=== PATIENT | male | born 1990 | race Caucasian/White ===

== ENCOUNTER 2018-08-06 10:21 | Inpatient (IN) | payer MEDICAID ==
[~2018-08-06] VITALS: Ht 185.4 cm; Wt 112.5 kg
[2018-08-06] MEDS ORDERED: SODIUM CHLORIDE 0.9% 1,000 ML IV ONE (10:57)
[2018-08-06] MEDS ORDERED: ACETAMINOPHEN 325MG TABLET PO ONE (11:00)
[2018-08-06] MEDS ORDERED: LEVETIRACETAM 1000MG/100ML 100 ML IV ONE (11:00)
[2018-08-06 12:09] LABS: BASOPHILS % 0.5 % (0.0-2.0); EOSINOPHILS % 0.9 % (0.0-5.0); HEMATOCRIT. 40.9 % (42.0-52.0); HEMOGLOBIN. 14.4 g/dL (14.0-18.0); LYMPHOCYTES % 10.1 % (20.0-50.0); MEAN CORPUSCULAR HEMOGLOBIN 30.2 pg (28.0-32.0); MEAN CORPUSCULAR VOLUME 85.9 fL (80.0-94.0); MONOCYTES % 6.5 % (2.0-8.0); PLATELET 281 x1000/uL (130-400); RED BLOOD CELL COUNT 4.76 mill/uL (4.7-6.1); RED CELL DISTRIBUTION WIDTH 14.1 % (11.6-14.6)
[2018-08-06] MEDS ORDERED: ACETAMINOPHEN 325MG TABLET ONE (12:12)
[2018-08-06 12:17] LABS: PROTHROMBIN TIME 10.1 sec (9.1-11.1)
[2018-08-06 12:18] LABS: CHLORIDE 105 mEq/L (98-107)
[2018-08-06 12:26] LABS: ETHANOL BLOOD < 10 mg/dL
[2018-08-06] MEDS ORDERED: LORAZEPAM 2MG/ML CPJ IV PRN (14:45)
[2018-08-06 18:15] LABS: CLARITY URINE CLEAR (CLEAR); COLOR URINE YELLOW (YELLOW); KETONES URINE NEGATIVE (NEGATIVE); LEUKOCYTE ESTERASE URINE NEGATIVE (NEGATIVE); NITRITE URINE NEGATIVE (NEGATIVE); OCCULT BLOOD URINE NEGATIVE (NEGATIVE); PH URINE 5.5 (4.5-8.0); PROTEIN URINE NEGATIVE (NEGATIVE); SPECIFIC GRAVITY URINE 1.016 (1.005-1.030); UROBILINOGEN URINE 0.2 E.U./dL (0.2-1.0)
[2018-08-06 18:25] VITALS: BP 125/70
[2018-08-06 18:38] VITALS: BP 125/70
[2018-08-06 18:50] LABS: *AMPHETAMINES SCREEN URINE NEGATIVE (NEGATIVE); *BARBITURATES SCREEN URINE NEGATIVE (NEGATIVE); *BENZODIAZEPINES SCREEN URINE NEGATIVE (NEGATIVE); *COCAINE SCREEN URINE NEGATIVE (NEGATIVE); CANNABINOID URINE SCREEN NEGATIVE (NEGATIVE); METHADONE URINE SCREEN NEGATIVE (NEGATIVE); OPIATES URINE SCREEN NEGATIVE (NEGATIVE); PHENCYCLIDINE URINE SCREEN NEGATIVE (NEGATIVE)
[2018-08-06 20:00] VITALS: BP 121/65
[2018-08-06] MEDS ORDERED: PNEUMOCOCCAL 23-VAL P-SAC VAC 0.5 ML IM ONE (20:30)
[2018-08-06] MEDS ORDERED: INFLUENZA VIRUS VACCINE(AFLURIA) 0.5ML SYR IM ONE (20:30)
[2018-08-06] MEDS: LEVETIRACETAM 500MG TABLET PO SCH (20:34)
[2018-08-06] MEDS: ACETAMINOPHEN 325MG TABLET PO PRN (20:35)
[2018-08-07] VITALS: BP 128/67
[2018-08-07 04:00] VITALS: BP 137/76
[2018-08-07 06:54] LABS: BASOPHILS % 0.4 % (0.0-2.0); EOSINOPHILS % 1.5 % (0.0-5.0); HEMATOCRIT. 37.8 % (42.0-52.0); LYMPHOCYTES % 19.5 % (20.0-50.0); MEAN CORPUSCULAR HEMOGLOBIN 29.3 pg (28.0-32.0); MEAN CORPUSCULAR VOLUME 85.3 fL (80.0-94.0); MEAN PLATELET VOLUME 9.2 fl (7.4-10.4); MONOCYTES % 9.5 % (2.0-8.0); NEUTROPHILS % 69.1 % (40.0-76.0); PLATELET 253 x1000/uL (130-400); RED BLOOD CELL COUNT 4.44 mill/uL (4.7-6.1); RED CELL DISTRIBUTION WIDTH 14.5 % (11.6-14.6)
[2018-08-07 07:34] LABS: CHLORIDE 105 mEq/L (98-107)
[2018-08-07 08:00] VITALS: BP 124/67
[2018-08-07] MEDS: LEVETIRACETAM 500MG TABLET PO SCH ×2 (08:04→20:46)
[2018-08-07 12:00] VITALS: BP_SYST 114; BP_SYST 124; BP_DIAS 67; BP_DIAS 80
[2018-08-07 16:00] VITALS: BP 123/66
[2018-08-07] MEDS: ACETAMINOPHEN 325MG TABLET PO PRN (19:41)
[2018-08-07 20:00] VITALS: BP 123/79
[2018-08-08] VITALS: BP 110/71
[2018-08-08 04:00] VITALS: BP 117/78
[2018-08-08 07:22] LABS: BASOPHILS % 0.8 % (0.0-2.0); EOSINOPHILS % 2.3 % (0.0-5.0); HEMATOCRIT. 37.5 % (42.0-52.0); LYMPHOCYTES % 26.8 % (20.0-50.0); MEAN CORPUSCULAR HEMOGLOBIN 29.6 pg (28.0-32.0); MEAN CORPUSCULAR VOLUME 85.1 fL (80.0-94.0); MONOCYTES % 8.9 % (2.0-8.0); NEUTROPHILS % 61.2 % (40.0-76.0); PLATELET 246 x1000/uL (130-400)
[2018-08-08 07:30] LABS: CHLORIDE 105 mEq/L (98-107)
[2018-08-08 08:30] VITALS: BP 104/61
[2018-08-08] MEDS: LEVETIRACETAM 500MG TABLET PO SCH (09:14)
[2018-08-08 12:00] VITALS: BP 127/78
[2018-08-08 15:18] VITALS: BP 127/78
[2018-08-08 17:16] VITALS: BP 118/71
== END 2018-08-08 16:10 | disposition home or self-care (01) | DRG 53 ==
LOC: ER 10:28 → 8WST 13:36 → EDBEDREQ 13:39 → ENRESERV 16:41
PROVIDERS: ADMIT Internal Medicine; ATTEND Internal Medicine
DX: G40.89 Other seizures (principal); G90.8 Other disorders of autonomic nervous system; E66.9 Obesity, unspecified; Z71.3 Dietary counseling and surveillance; Z68.32 Body mass index [BMI] 32.0-32.9, adult
CPT/HCPCS: 36415; 70551; 71045; 72141; 80048; 80305; 83605; 84484; 93005; 96365; 97110; 97166; 99291; G0482; J1953; J7030

== ENCOUNTER 2018-11-03 05:59 | Emergency (ER) | payer MEDICAID ==
[~2018-11-03] VITALS: Ht 177.8 cm; Wt 86.0 kg
[2018-11-03] MEDS ORDERED: KETOROLAC 30MG/ML VIAL IV STA (08:34)
[2018-11-03] MEDS ORDERED: SODIUM CHLORIDE 0.9% 1,000 ML IV ONE (08:34)
[2018-11-03] MEDS ORDERED: LEVETIRACETAM 500MG PREMIX 100 ML IV ONE (08:45)
[2018-11-03 09:08] LABS: BASOPHILS % 0.6 % (0.0-2.0); EOSINOPHILS % 0.3 % (0.0-5.0); HEMATOCRIT. 41.1 % (42.0-52.0); LYMPHOCYTES % 7.7 % (20.0-50.0); MEAN CORPUSCULAR HEMOGLOBIN 28.8 pg (28.0-32.0); MEAN CORPUSCULAR VOLUME 84.6 fL (80.0-94.0); MEAN PLATELET VOLUME 9.1 fl (7.4-10.4); MONOCYTES % 3.7 % (2.0-8.0); NEUTROPHILS % 87.7 % (40.0-76.0); PLATELET 243 x1000/uL (130-400); RED BLOOD CELL COUNT 4.86 mill/uL (4.7-6.1); RED CELL DISTRIBUTION WIDTH 14.5 % (11.6-14.6)
[2018-11-03 09:12] LABS: CHLORIDE 108 mEq/L (98-107)
[2018-11-03 11:21] VITALS: BP 126/65
== END 2018-11-03 11:24 | disposition home or self-care (01) ==
LOC: ER 05:59
DX: G40.909 Epilepsy, unspecified, not intractable, without status epilepticus (principal); M25.511 Pain in right shoulder
CPT/HCPCS: 36415; 73030; 80053; 85025; 96365; 96375; 99284; J1885; J1953; J7030; Z7610